=== PATIENT | female | born 1985 | race Hispanic/Latino ===

== ENCOUNTER 2017-06-20 16:16 | Emergency (ER) | payer OTHER ==
[~2017-06-20] VITALS: Ht 170.2 cm; Wt 105.5 kg
[~2017-06-20 16:16] MED LIST: DAILY VALUE1 EACH PO; FLUOXETINE HCL20 MG PO; METFORMIN HCL500 M1 PO; NAPROXEN500 MG PO; NUVARING VAGIN1 EACH VG; PREDNISONE20 MG PO; PROZAC10 MG PO
[2017-06-20 17:05] LABS: HEMATOCRIT 40.8 % (36.0-46.0); MCH 29.3 PG (29.0-34.0); MCHC 33.8 G/DL (30.0-36.0); MCV 86.6 FL (83-99); MEAN PLAT.VOLUME 13.5 uM^3 (9.5-12.4); PLATELET COUNT 169 K/uL (156-360); RBC DIS.WIDTH-CV 12.6 % (11.8-14.6); RBC DIS.WIDTH-SD 39.8 % (39-53); RED BLOOD COUNT 4.71 M/uL (3.80-5.20); WHITE BLOOD COUNT 6.6 K/uL (4.1-10.2)
[2017-06-20 17:16] LABS: CHLORIDE 105 mEq/L (99-109); POTASSIUM 4.3 mEq/L (3.7-5.4); SODIUM 137 mEq/L (136-147)
[2017-06-20 17:18] LABS: GLUCOSE 135 mg/dL (70-99)
[2017-06-20 17:19] LABS: ANION GAP 9 MEQ/L (2-14)
[2017-06-20 17:20] LABS: TOTAL BILIRUBIN 0.4 mg/dL (0.0-1.0)
[2017-06-20 17:22] LABS: ALKALINE PHOSPHATASE 45 IU/L (3-129); GFR ESTIMATE (CALCULATED) > 59 mL/min/
[2017-06-20 17:23] LABS: UREA NITROGEN (BUN) 8 mg/dL (9-23)
[2017-06-20 17:25] LABS: LIPASE 20 U/L (1.0-51.0)
[2017-06-20 17:31] LABS: QUANTITATIVE HCG < 4.0 MIU/ML
[2017-06-20 19:09] LABS: ADD MIUA? NO; BILIRUBIN NEGATIVE; BLOOD NEGATIVE; COLOR YELLOW ((YELLOW)); GLUCOSE (STRIP) NEGATIVE; KETONES NEGATIVE; LEUKOCYTES NEGATIVE; NITRITE NEGATIVE; PROTEIN (STRIP) NEGATIVE; SPECIFIC GRAVITY 1.008 (1.000-1.030); UCUL ADDED? NO; UROBILINOGEN 0.2 MG/DL (0.2-1.0)
[2017-06-20 20:39] VITALS: BP 134/78
== END 2017-06-20 20:40 | disposition home or self-care (01) ==
LOC: EME 16:16
DX: R11.2 Nausea with vomiting, unspecified (principal); R10.13 Epigastric pain; R19.7 Diarrhea, unspecified; K76.0 Fatty (change of) liver, not elsewhere classified; E11.9 Type 2 diabetes mellitus without complications; Z79.84 Long term (current) use of oral hypoglycemic drugs
CPT/HCPCS: 76705; 80053; 81003; 83690; 84702; 85027; 99281; 99284